=== PATIENT | female | born 1980 | race Caucasian/White ===

== ENCOUNTER 2023-12-14 21:15 | Emergency (ER) | payer OTHER ==
[~2023-12-14] VITALS: Ht 172.7 cm; Wt 65.8 kg
[2023-12-14] MEDS ORDERED: HYDROCODONE/APAP 5-325MG TABLET PO ONE (21:45)
[2023-12-14] MEDS ORDERED: HYDROCODONE/APAP 5-325MG TABLET ONE (21:53)
[2023-12-14] MEDS ORDERED: AMOXICILLIN-CLAVUL 875-125MG TABLET ONE (21:58)
[2023-12-14] MEDS ORDERED: TDAP DIPH,PERTUSS,TET VAC/PF 0.5 ML DISP.SYRIN IM ONE ×2 (21:59→22:00)
[2023-12-14] MEDS ORDERED: AMOXICILLIN-CLAVUL 875-125MG TABLET PO ONE (22:00)
[2023-12-14] MEDS ORDERED: HYDR-3980 PO (22:04)
[2023-12-14] MEDS ORDERED: AMOX-430 PO (22:04)
[2023-12-14] MEDS ORDERED: ONDA4TAB5 PO (22:04)
[2023-12-14 22:29] VITALS: BP 108/74; TEMP 98.2; O2SAT 98
== END 2023-12-14 22:30 | disposition home or self-care (01) ==
LOC: ER 21:21
DX: S67.191A Crushing injury of left index finger, initial encounter (principal); Z79.899 Other long term (current) drug therapy; W54.0XXA Bitten by dog, initial encounter; Y93.89 Activity, other specified; Y92.89 Other specified places as the place of occurrence of the external cause; Y99.8 Other external cause status
CPT/HCPCS: 73140; 90715; A4606; A4663